=== PATIENT | female | born 1995 | race Caucasian/White ===

== ENCOUNTER 2021-07-19 13:22 | Emergency (ER) | payer OTHER, MEDICAID ==
[2021-07-19] MEDS ORDERED: CYCLOBENZAPRINE10 MG PO (15:36)
[2021-07-19] MEDS ORDERED: MOBIC15 MG PO (15:36)
== END 2021-07-19 17:40 | disposition home or self-care (01) ==
LOC: ER1 13:22
DX: S09.90XA Unspecified injury of head, initial encounter (principal); S16.1XXA Strain of muscle, fascia and tendon at neck level, initial encounter; S39.012A Strain of muscle, fascia and tendon of lower back, initial encounter; S29.019A Strain of muscle and tendon of unspecified wall of thorax, initial encounter; S46.912A Strain of unspecified muscle, fascia and tendon at shoulder and upper arm level, left arm, initial encounter; S43.402A Unspecified sprain of left shoulder joint, initial encounter; S80.02XA Contusion of left knee, initial encounter; S20.211A Contusion of right front wall of thorax, initial encounter; F17.200 Nicotine dependence, unspecified, uncomplicated; V49.40XA Driver injured in collision with unspecified motor vehicles in traffic accident, initial encounter; Y92.410 Unspecified street and highway as the place of occurrence of the external cause
CPT/HCPCS: 70450; 71101; 72072; 72100; 72125; 72128; 73030; 73562; 99284

== ENCOUNTER 2021-11-16 10:10 | Emergency (ER) | payer OTHER ==
[~2021-11-16 10:10] MED LIST: CYCLOBENZAPRINE10 MG PO; MOBIC15 MG PO
== END 2021-11-16 12:13 | disposition home or self-care (01) ==
LOC: ER1 10:10
DX: T16.2XXA Foreign body in left ear, initial encounter (principal); X58.XXXA Exposure to other specified factors, initial encounter
CPT/HCPCS: 69200; 99282